=== PATIENT | male | born 2005 | race Caucasian/White ===

== ENCOUNTER 2023-03-07 11:28 | Emergency (ER) | payer OTHER ==
[~2023-03-07] VITALS: Ht 172.7 cm; Wt 63.0 kg
[2023-03-07 11:29] VITALS: O2SAT 98
[2023-03-07] MEDS ORDERED: MORPHINE SULFATE 4 MG/ML CPJ (NOT FOR IM USE) IV ONE (14:00)
[2023-03-07] MEDS ORDERED: LIDOCAINE HCL 2%/EPINEPHRINE/PF 10 ML VIAL INFIL ONE (14:00)
[2023-03-07] MEDS ORDERED: MORPHINE SULFATE 10 MG/ML CPJ IM NR ×2 (14:15→14:47)
[2023-03-07] MEDS ORDERED: LIDOCAINE 2%/EPINEPHRINE 1:200,000 20 ML VIAL INJ NR (14:15)
[2023-03-07 18:40] VITALS: TEMP 98.3
[2023-03-07 19:40] VITALS: BP 125/78; PULSE 65; RESP 20
== END 2023-03-07 19:43 | disposition home or self-care (01) ==
LOC: ER 11:28
DX: S43.101A Unspecified dislocation of right acromioclavicular joint, initial encounter (principal); W18.39XA Other fall on same level, initial encounter; Y93.89 Activity, other specified; Y92.89 Other specified places as the place of occurrence of the external cause; Y99.8 Other external cause status
CPT/HCPCS: 73030; 96372; 99283; J2270; Z7610; A4565; J3490

== ENCOUNTER 2023-03-15 09:38 | Emergency (ER) | payer OTHER ==
[~2023-03-15] VITALS: Ht 172.7 cm; Wt 77.0 kg
[2023-03-15 09:44] VITALS: BP 124/67; PULSE 59; RESP 19; TEMP 97.8; O2SAT 96
[2023-03-15] MEDS ORDERED: NAPR-1176 MT (11:05)
== END 2023-03-15 12:22 | disposition home or self-care (01) ==
LOC: ER 09:38
DX: S43.101A Unspecified dislocation of right acromioclavicular joint, initial encounter (principal); X58.XXXA Exposure to other specified factors, initial encounter; Y93.89 Activity, other specified; Y92.89 Other specified places as the place of occurrence of the external cause; Y99.8 Other external cause status
CPT/HCPCS: 99282